=== PATIENT | female | born 1970 | race African-American/Black ===

== ENCOUNTER 2020-11-29 11:02 | Emergency (ER) | payer OTHER ==
[~2020-11-29] VITALS: Ht 162.6 cm; Wt 86.2 kg
[2020-11-29] MEDS ORDERED: ALBUTEROL/IPRATROPIUM 3 ML NEB NEB STA (11:22)
[2020-11-29] MEDS ORDERED: PREDNISONE 20 MG TAB PO STA (11:22)
[2020-11-29] MEDS ORDERED: PREDNISONE 20 MG TAB ONE (11:43)
[2020-11-29] MEDS ORDERED: ALBUTEROL/IPRATROPIUM 3 ML NEB ONE (11:43)
[2020-11-29] MEDS ORDERED: VENTOLIN HFA18 GM INH (12:12)
[2020-11-29] MEDS ORDERED: PREDNISONE20 MG PO (12:12)
== END 2020-11-29 12:28 | disposition home or self-care (01) ==
LOC: FSED 11:11
DX: R06.02 Shortness of breath (principal); J45.909 Unspecified asthma, uncomplicated
CPT/HCPCS: 71046; 93005; 99283; J7512